=== PATIENT | male | born 1935 | race Caucasian/White ===

== ENCOUNTER 2017-11-27 15:52 | Emergency (ER) | payer MEDICARE, OTHER ==
[2017-11-27] MEDS: ALBUTEROL 0.5% (NEB) 2.5 MG/0.5 ML AMP INH (15:55)
[2017-11-27] MEDS: IPRATROPIUM (NEB) 0.5 MG/2.5 ML AMP INH (15:55)
[2017-11-27] MEDS: METHYLPREDNISOLONE 125 MG INJ IV (16:01)
[2017-11-27 16:05] LABS: ADD MAN DIFF? NO
[2017-11-27 16:12] LABS: WHITE BLOOD COUNT 8.9 10^3/ul (4.8-10.8)
[2017-11-27 16:12] LABS: BASOPHILS % 0.2 % (0.0-2.0); EOSINOPHILS # 0.3 10^3/ul (0.0-0.5); EOSINOPHILS % 2.8 % (0.0-7.0); HEMATOCRIT 41.4 % (42.0-52.0); HEMOGLOBIN 12.9 g/dl (14.0-18.0); LYMPHOCYTES # 1.9 10^3/ul (0.8-2.9); LYMPHOCYTES % 21.6 % (15.0-51.0); MEAN CORPUSCULAR HEMOGLOBIN 27.5 pg (29.0-33.0); MEAN CORPUSCULAR HGB CONC 31.2 g/dl (32.0-37.0); MEAN CORPUSCULAR VOLUME 88.3 fl (82.0-101.0); MEAN PLATELET VOLUME 9.7 fl (7.4-10.4); MONOCYTE # 0.8 10^3/ul (0.3-0.9); MONOCYTES % 8.9 % (0.0-11.0); NEUTROPHIL # 5.9 10^3/ul (1.6-7.5); NEUTROPHILS % 66.2 % (39.0-77.0); PLATELET COUNT 191 10^3/UL (140-415); RED BLOOD COUNT 4.69 10^6/ul (4.70-6.10); RED CELL DISTRIBUTION WIDTH 13.4 % (11.5-14.5)
[2017-11-27] MEDS: MAGNESIUM SULFATE 2 GM/50 ML 50 ML IVPB (16:19)
[2017-11-27 16:28] LABS: ANION GAP 17 (8-16); BLOOD UREA NITROGEN 14 mg/dl (7-20); CALCIUM 7.2 mg/dl (8.4-10.2); CARBON DIOXIDE 31 mmol/L (21-31); CHLORIDE 101 mmol/L (97-110); CREATININE 0.84 mg/dl (0.61-1.24); GLUCOSE 79 mg/dl (70-220); POTASSIUM 4.4 mmol/L (3.5-5.1); SODIUM 145 mmol/L (135-144)
[2017-11-27 16:31] LABS: PROTIME 12.2 Sec (11.9-14.9)
[2017-11-27 16:32] LABS: PARTIAL THROMBOPLASTIN TIME 29.3 Sec (25.0-35.0)
[2017-11-27 16:37] LABS: B-TYPE NATRIURETIC PEPTIDE 640 PG/ML (0-450)
[2017-11-27 16:48] LABS: TROPONIN-I < 0.012 ng/ml (0.00-0.12)
== END 2017-11-27 18:59 | disposition home or self-care (01) ==
LOC: E/R 15:52
DX: J44.1 Chronic obstructive pulmonary disease with (acute) exacerbation (principal); I10 Essential (primary) hypertension; I25.10 Atherosclerotic heart disease of native coronary artery without angina pectoris; J45.901 Unspecified asthma with (acute) exacerbation; Z79.82 Long term (current) use of aspirin; Z87.891 Personal history of nicotine dependence; Z98.61 Coronary angioplasty status
CPT/HCPCS: 36415; 71045; 80048; 83880; 84484; 85025; 85610; 85730; 93005; 94644; 96374; 96375; 99285-25

== ENCOUNTER 2018-05-02 08:22 | Inpatient (IN) | payer MEDICARE, OTHER ==
[2018-05-02 09:11] LABS: ADD MAN DIFF? NO
[2018-05-02 09:17] LABS: BASOPHILS % 0.2 % (0.0-2.0); EOSINOPHILS # 0.1 10^3/ul (0.0-0.5); EOSINOPHILS % 1.5 % (0.0-7.0); HEMOGLOBIN 13.9 g/dl (14.0-18.0); LYMPHOCYTES # 1.1 10^3/ul (0.8-2.9); LYMPHOCYTES % 13.9 % (15.0-51.0); MEAN CORPUSCULAR HGB CONC 30.9 g/dl (32.0-37.0); MEAN CORPUSCULAR VOLUME 90.7 fl (82.0-101.0); MEAN PLATELET VOLUME 9.1 fl (7.4-10.4); MONOCYTE # 0.9 10^3/ul (0.3-0.9); MONOCYTES % 10.8 % (0.0-11.0); NEUTROPHIL # 5.9 10^3/ul (1.6-7.5); NEUTROPHILS % 73.2 % (39.0-77.0); PLATELET COUNT 194 10^3/UL (140-415); RED BLOOD COUNT 4.96 10^6/ul (4.70-6.10)
[2018-05-02 09:17] LABS: WHITE BLOOD COUNT 8.1 10^3/ul (4.8-10.8)
[2018-05-02] MEDS: ALBUTEROL 0.083% (NEB) 2.5 MG/3 ML AMP HHN ×2 (09:23→10:19)
[2018-05-02 09:35] LABS: ALANINE AMINOTRANSFERASE 28 IU/L (13-69); ALBUMIN 3.4 g/dl (3.3-4.9); ALBUMIN/GLOBULIN RATIO 1.09; ALKALINE PHOSPHATASE 97 IU/L (42-121); ASPARTATE AMINO TRANSFERASE 21 IU/L (15-46); BILIRUBIN,INDIRECT 0.6 mg/dl (0-1.1); BILIRUBIN,TOTAL 0.6 mg/dl (0.2-1.3); BLOOD UREA NITROGEN 19 mg/dl (7-20); CALCIUM 8.9 mg/dl (8.4-10.2); CHLORIDE 94 mmol/L (97-110); CREATININE 0.96 mg/dl (0.61-1.24); GLUCOSE 94 mg/dl (70-220); INR 0.86; POTASSIUM 4.5 mmol/L (3.5-5.1); PROTIME 11.8 Sec (11.9-14.9); PT RATIO 0.9; SODIUM 141 mmol/L (135-144); TOTAL PROTEIN 6.5 g/dl (6.1-8.1)
[2018-05-02 09:35] LABS: LACTIC ACID 0.6 mmol/L (0.5-2.0)
[2018-05-02 09:36] LABS: PARTIAL THROMBOPLASTIN TIME 28.8 Sec (23.0-35.0)
[2018-05-02 09:47] LABS: B-TYPE NATRIURETIC PEPTIDE 447 PG/ML (0-450); TROPONIN-I < 0.012 ng/ml (0.000-0.120)
[2018-05-02 10:05] LABS: ANION GAP 10 (8-16); CARBON DIOXIDE 42 mmol/L (21-31)
[2018-05-02] MEDS: METHYLPREDNISOLONE 125 MG INJ IV ×2 (10:13→20:17)
[2018-05-02] MEDS: ACETAMINOPHEN 500 MG TAB PO (10:23)
[2018-05-02 13:14] LABS: LACTIC ACID 0.9 mmol/L (0.5-2.0)
[2018-05-02] MEDS ORDERED: ACETAMINOPHEN 500 MG TAB PO (13:30)
[2018-05-02] MEDS: VANCOMYCIN 2 GM in SOD CHLORIDE 0.9% 500 ML IVPB (17:09)
[2018-05-02] MEDS: EZETIMIBE 10 MG TAB PO (20:15)
[2018-05-02] MEDS: RANOLAZINE (SR) 500 MG TAB PO (20:17)
[2018-05-02] MEDS: ROSUVASTATIN CALCIUM 40 MG TABLET PO (20:24)
[2018-05-03] MEDS: ALBUTEROL/IPRATROPIUM (NEB) 3 ML AMP HHN ×4 (00:33→23:28)
[2018-05-03] MEDS: VANCOMYCIN 1 GM 250 ML IVPB ×2 (04:37→16:49)
[2018-05-03] MEDS: traMADol 50 MG TAB PO (08:08)
[2018-05-03] MEDS: AMLODIPINE 5 MG TAB PO (08:52)
[2018-05-03] MEDS: ASPIRIN 81 MG TAB PO (08:52)
[2018-05-03] MEDS: FUROSEMIDE 40 MG TAB PO (08:52)
[2018-05-03] MEDS: ISOSORBIDE MONONITRATE(SR)60 MG TAB PO (08:53)
[2018-05-03] MEDS: RANOLAZINE (SR) 500 MG TAB PO ×2 (08:53→20:59)
[2018-05-03] MEDS: FLUTICASONE/VILANTEROL 200-25 INH DEVICE INH (08:54)
[2018-05-03] MEDS ORDERED: VANCOMYCIN 1 GM (PMX) 250 ML IVPB (09:00)
[2018-05-03] MEDS: FUROSEMIDE 20 MG INJ IV (16:49)
[2018-05-03] MEDS: ROSUVASTATIN CALCIUM 40 MG TABLET PO (20:59)
[2018-05-03] MEDS: EZETIMIBE 10 MG TAB PO (20:59)
[2018-05-03] MEDS: METHYLPREDNISOLONE 125 MG INJ IV (21:01)
[2018-05-04 03:51] LABS: ADD MAN DIFF? NO
[2018-05-04 04:11] LABS: WHITE BLOOD COUNT 20.7 10^3/ul (4.8-10.8)
[2018-05-04 04:11] LABS: BASOPHILS % 0.1 % (0.0-2.0); HEMATOCRIT 42.2 % (42.0-52.0); HEMOGLOBIN 13.7 g/dl (14.0-18.0); LYMPHOCYTES % 4.9 % (15.0-51.0); MEAN CORPUSCULAR HEMOGLOBIN 28.5 pg (29.0-33.0); MEAN CORPUSCULAR HGB CONC 32.5 g/dl (32.0-37.0); MEAN CORPUSCULAR VOLUME 87.9 fl (82.0-101.0); MEAN PLATELET VOLUME 9.6 fl (7.4-10.4); MONOCYTE # 0.5 10^3/ul (0.3-0.9); MONOCYTES % 2.3 % (0.0-11.0); NEUTROPHILS % 91.9 % (39.0-77.0); PLATELET COUNT 215 10^3/UL (140-415)
[2018-05-04 04:15] LABS: ALANINE AMINOTRANSFERASE 22 IU/L (13-69); ALBUMIN 3.1 g/dl (3.3-4.9); ALKALINE PHOSPHATASE 81 IU/L (42-121); ANION GAP 10 (8-16); ASPARTATE AMINO TRANSFERASE 19 IU/L (15-46); BILIRUBIN,INDIRECT 0.3 mg/dl (0-1.1); BILIRUBIN,TOTAL 0.3 mg/dl (0.2-1.3); BLOOD UREA NITROGEN 28 mg/dl (7-20); CARBON DIOXIDE 39 mmol/L (21-31); CHLORIDE 95 mmol/L (97-110); CREATININE 0.93 mg/dl (0.61-1.24); GLUCOSE 152 mg/dl (70-220); POTASSIUM 4.3 mmol/L (3.5-5.1); SODIUM 140 mmol/L (135-144); TOTAL PROTEIN 6.2 g/dl (6.1-8.1)
[2018-05-04 04:49] LABS: VANCOMYCIN,TROUGH 12.2 ug/ml (10.0-20.0)
[2018-05-04] MEDS: VANCOMYCIN 1 GM 250 ML IVPB (05:00)
[2018-05-04] MEDS: ALBUTEROL/IPRATROPIUM (NEB) 3 ML AMP HHN ×2 (08:00→15:21)
[2018-05-04] MEDS: RANOLAZINE (SR) 500 MG TAB PO (08:22)
[2018-05-04] MEDS: ASPIRIN 81 MG TAB PO (08:22)
[2018-05-04] MEDS: AMLODIPINE 5 MG TAB PO (08:23)
[2018-05-04] MEDS: ISOSORBIDE MONONITRATE(SR)60 MG TAB PO (08:23)
[2018-05-04] MEDS: FLUTICASONE/VILANTEROL 200-25 INH DEVICE INH (08:24)
[2018-05-04] MEDS: FUROSEMIDE 40 MG TAB PO (08:24)
[2018-05-04] MEDS: traMADol 50 MG TAB PO (08:27)
== END 2018-05-04 16:47 | disposition home or self-care (01) | DRG 291 ==
LOC: E/R 08:22 → TEL 05-03 20:15
DX: I11.0 Hypertensive heart disease with heart failure (principal); J96.21 Acute and chronic respiratory failure with hypoxia; J96.22 Acute and chronic respiratory failure with hypercapnia; L03.211 Cellulitis of face; J44.1 Chronic obstructive pulmonary disease with (acute) exacerbation; I50.33 Acute on chronic diastolic (congestive) heart failure; G30.9 Alzheimer's disease, unspecified; F02.80 Dementia in other diseases classified elsewhere, unspecified severity, without behavioral disturbance, psychotic disturbance, mood disturbance, and anxiety; F32.9 Major depressive disorder, single episode, unspecified; K21.9 Gastro-esophageal reflux disease without esophagitis; I25.119 Atherosclerotic heart disease of native coronary artery with unspecified angina pectoris; Z91.14 Patient's other noncompliance with medication regimen; Z98.62 Peripheral vascular angioplasty status; I25.5 Ischemic cardiomyopathy; I25.2 Old myocardial infarction; E11.51 Type 2 diabetes mellitus with diabetic peripheral angiopathy without gangrene
CPT/HCPCS: 36415; 71045; 71046; 80053; 80202; 83605; 83880; 84484; 85025; 85610; 85730; 87040; 93005; 93306; 94640; 94664; 96374; 99285-25

== ENCOUNTER 2018-09-29 13:31 | Inpatient (IN) | payer MEDICARE, OTHER ==
[2018-09-29] MEDS: ALBUTEROL 0.5% (NEB) 2.5 MG/0.5 ML AMP INH (14:00)
[2018-09-29] MEDS: IPRATROPIUM (NEB) 0.5 MG/2.5 ML AMP INH (14:00)
[2018-09-29] MEDS: AZITHROMYCIN 500MG/NS (PMX) 250 ML IV (14:03)
[2018-09-29] MEDS: DEXAMETHASONE 10 MG/ML 1 ML INJ IV (14:03)
[2018-09-29 14:08] LABS: ADD MAN DIFF? NO
[2018-09-29 14:09] LABS: AADO2 Venous 71.8 mmHg; MODE NASAL CANNULA; MetHgb Venous 0.1 %; Sample Type Blood venous; Site OTHER; Venous COHb 1.1 %; Venous Fraction OxyHgb 55.7 %; Venous Oxygen Sat 56.4 mmHG (55.0-75.0); Venous Total Hemglobin 14.2 g/dl
[2018-09-29 14:15] LABS: BASOPHILS % 0.3 % (0.0-2.0); EOSINOPHILS # 0.1 10^3/ul (0.0-0.5); EOSINOPHILS % 1.3 % (0.0-7.0); HEMATOCRIT 42.6 % (42.0-52.0); HEMOGLOBIN 13.3 g/dl (14.0-18.0); LYMPHOCYTES # 1.4 10^3/ul (0.8-2.9); MEAN CORPUSCULAR HEMOGLOBIN 28.5 pg (29.0-33.0); MEAN CORPUSCULAR HGB CONC 31.2 g/dl (32.0-37.0); MEAN CORPUSCULAR VOLUME 91.4 fl (82.0-101.0); MEAN PLATELET VOLUME 9.8 fl (7.4-10.4); MONOCYTE # 0.7 10^3/ul (0.3-0.9); MONOCYTES % 9.2 % (0.0-11.0); NEUTROPHIL # 5.5 10^3/ul (1.6-7.5); NEUTROPHILS % 70.6 % (39.0-77.0); PLATELET COUNT 172 10^3/UL (140-415); RED BLOOD COUNT 4.66 10^6/ul (4.70-6.10); RED CELL DISTRIBUTION WIDTH 13.5 % (11.5-14.5)
[2018-09-29 14:15] LABS: WHITE BLOOD COUNT 7.8 10^3/ul (4.8-10.8)
[2018-09-29 14:34] LABS: ALANINE AMINOTRANSFERASE 19 IU/L (13-69); ALBUMIN 4.1 g/dl (3.3-4.9); ALBUMIN/GLOBULIN RATIO 1.36; ALKALINE PHOSPHATASE 72 IU/L (42-121); ASPARTATE AMINO TRANSFERASE 21 IU/L (15-46); BILIRUBIN,INDIRECT 0.4 mg/dl (0-1.1); BILIRUBIN,TOTAL 0.4 mg/dl (0.2-1.3); BLOOD UREA NITROGEN 16 mg/dl (7-20); CALCIUM 9.2 mg/dl (8.4-10.2); CHLORIDE 95 mmol/L (97-110); CREATININE 0.83 mg/dl (0.61-1.24); GLUCOSE 86 mg/dl (70-220); POTASSIUM 4.5 mmol/L (3.5-5.1); SODIUM 140 mmol/L (135-144); TOTAL PROTEIN 7.1 g/dl (6.1-8.1)
[2018-09-29 14:40] LABS: ANION GAP 5 (5-13)
[2018-09-29 14:45] LABS: TROPONIN-I < 0.012 ng/ml (0.000-0.120)
[2018-09-29 14:52] LABS: B-TYPE NATRIURETIC PEPTIDE 955 PG/ML (0-450); CARBON DIOXIDE 40 mmol/L (21-31)
[2018-09-29 15:16] LABS: INR 0.92; PROTIME 12.5 Sec (11.9-14.9)
[2018-09-29 15:18] LABS: PARTIAL THROMBOPLASTIN TIME 28.3 Sec (23.0-35.0)
[2018-09-29] MEDS ORDERED: HYDROCORTISONE 250 MG INJ IV ×2 (18:30)
[2018-09-29] MEDS ORDERED: traMADol 50 MG TAB PO (18:30)
[2018-09-29] MEDS ORDERED: NITROGLYCERIN (SL) 0.4 MG TAB SL (18:30)
[2018-09-29] MEDS: ISOSORBIDE MONONITRATE(SR)60 MG TAB PO (19:05)
[2018-09-29] MEDS: FUROSEMIDE 40 MG TAB PO (19:06)
[2018-09-29] MEDS: ASPIRIN 81 MG TAB PO (19:06)
[2018-09-29] MEDS: AMLODIPINE 5 MG TAB PO (19:06)
[2018-09-29 19:39] LABS: CREATINE KINASE 30 IU/L (23-200); IRON 63 ug/dl (35-150)
[2018-09-29 19:39] LABS: MAGNESIUM 1.9 mg/dl (1.7-2.5)
[2018-09-29 19:49] LABS: CK INDEX 3.2; CK-MB 0.95 ng/ml (0.0-2.4); TROPONIN-I 0.015 ng/ml (0.000-0.120)
[2018-09-29 19:50] LABS: % IRON SATURATION 20 % SAT (22-52); TOTAL IRON BINDING CAPACITY 317 ug/dl (241-421)
[2018-09-29] MEDS: ALBUTEROL/IPRATROPIUM (NEB) 3 ML AMP INH (19:55)
[2018-09-29 20:08] LABS: THYROID STIMULATING HORMONE 0.512 MIU/L (0.465-4.680)
[2018-09-29] MEDS: RANOLAZINE (SR) 500 MG TAB PO (20:13)
[2018-09-29] MEDS: METHYLPRED NA SUCC IV (20:14)
[2018-09-29] MEDS: SOD CHLORIDE 0.9% IV (20:14)
[2018-09-29] MEDS: RANITIDINE 150 MG TAB PO (20:14)
[2018-09-29] MEDS: ENOXAPARIN 60 MG/0.6 ML SYG SC (20:26)
[2018-09-30] MEDS: ALBUTEROL/IPRATROPIUM (NEB) 3 ML AMP INH ×4 (01:21→19:40)
[2018-09-30 03:12] LABS: ADD UMIC NO; UR ASCORBIC ACID 40 mg/dL (NEGATIVE); UR BILIRUBIN (Dip) NEGATIVE (NEGATIVE); UR BLOOD (Dip) NEGATIVE (NEGATIVE); UR CLARITY CLEAR (CLEAR); UR COLOR AMBER (YELLOW); UR GLUCOSE (Dip) NEGATIVE (NEGATIVE); UR KETONES (Dip) NEGATIVE (NEGATIVE); UR LEUKOCYTE ESTERASE (Dip) NEGATIVE Leu/ul (NEGATIVE); UR NITRITE (Dip) NEGATIVE (NEGATIVE); UR TOTAL PROTEIN (Dip) NEGATIVE (NEGATIVE); UR UROBILINOGEN (Dip) 1+ mg/dL (NEGATIVE)
[2018-09-30 05:27] LABS: ADD MAN DIFF? NO
[2018-09-30 05:28] LABS: HEMATOCRIT 38.1 % (42.0-52.0); LYMPHOCYTES # 0.8 10^3/ul (0.8-2.9); LYMPHOCYTES % 10.5 % (15.0-51.0); MEAN CORPUSCULAR HEMOGLOBIN 28.4 pg (29.0-33.0); MEAN CORPUSCULAR HGB CONC 31.5 g/dl (32.0-37.0); MEAN CORPUSCULAR VOLUME 90.1 fl (82.0-101.0); MEAN PLATELET VOLUME 9.8 fl (7.4-10.4); MONOCYTE # 0.1 10^3/ul (0.3-0.9); MONOCYTES % 0.9 % (0.0-11.0); NEUTROPHIL # 6.9 10^3/ul (1.6-7.5); NEUTROPHILS % 88.1 % (39.0-77.0); PLATELET COUNT 154 10^3/UL (140-415); RED BLOOD COUNT 4.23 10^6/ul (4.70-6.10); RED CELL DISTRIBUTION WIDTH 13.2 % (11.5-14.5)
[2018-09-30 05:28] LABS: WHITE BLOOD COUNT 7.9 10^3/ul (4.8-10.8)
[2018-09-30] MEDS: METHYLPREDNISOLONE 125 MG INJ IV (05:45)
[2018-09-30 05:57] LABS: ALANINE AMINOTRANSFERASE 18 IU/L (13-69); ALBUMIN 3.4 g/dl (3.3-4.9); ALKALINE PHOSPHATASE 63 IU/L (42-121); ANION GAP 5 (5-13); ASPARTATE AMINO TRANSFERASE 16 IU/L (15-46); BILIRUBIN,INDIRECT 0.2 mg/dl (0-1.1); BILIRUBIN,TOTAL 0.2 mg/dl (0.2-1.3); BLOOD UREA NITROGEN 24 mg/dl (7-20); CALCIUM 8.9 mg/dl (8.4-10.2); CARBON DIOXIDE 37 mmol/L (21-31); CHLORIDE 100 mmol/L (97-110); CREATININE 0.87 mg/dl (0.61-1.24); GLUCOSE 169 mg/dl (70-220); POTASSIUM 4.5 mmol/L (3.5-5.1); SODIUM 142 mmol/L (135-144)
[2018-09-30] MEDS: RANOLAZINE (SR) 500 MG TAB PO ×2 (08:38→20:01)
[2018-09-30] MEDS: ASPIRIN 81 MG TAB PO (08:38)
[2018-09-30] MEDS: ISOSORBIDE MONONITRATE(SR)60 MG TAB PO (08:38)
[2018-09-30] MEDS: AMLODIPINE 5 MG TAB PO (08:39)
[2018-09-30] MEDS: FUROSEMIDE 40 MG TAB PO (08:39)
[2018-09-30] MEDS: ENOXAPARIN 60 MG/0.6 ML SYG SC (09:09)
[2018-09-30] MEDS: AZITHROMYCIN 500MG/NS (PMX) 250 ML IVPB (14:45)
[2018-09-30] MEDS: RANITIDINE 150 MG TAB PO (20:01)
[2018-10-01] MEDS: ALBUTEROL/IPRATROPIUM (NEB) 3 ML AMP INH ×4 (01:27→20:12)
[2018-10-01 05:09] LABS: ADD MAN DIFF? NO
[2018-10-01 05:12] LABS: WHITE BLOOD COUNT 18.9 10^3/ul (4.8-10.8)
[2018-10-01 05:12] LABS: BASOPHILS % 0.1 % (0.0-2.0); HEMATOCRIT 38.6 % (42.0-52.0); HEMOGLOBIN 12.5 g/dl (14.0-18.0); LYMPHOCYTES # 0.9 10^3/ul (0.8-2.9); LYMPHOCYTES % 4.6 % (15.0-51.0); MEAN CORPUSCULAR HGB CONC 32.4 g/dl (32.0-37.0); MEAN CORPUSCULAR VOLUME 89.6 fl (82.0-101.0); MEAN PLATELET VOLUME 10.2 fl (7.4-10.4); MONOCYTE # 0.5 10^3/ul (0.3-0.9); MONOCYTES % 2.5 % (0.0-11.0); NEUTROPHIL # 17.5 10^3/ul (1.6-7.5); NEUTROPHILS % 92.1 % (39.0-77.0); PLATELET COUNT 158 10^3/UL (140-415); RED BLOOD COUNT 4.31 10^6/ul (4.70-6.10); RED CELL DISTRIBUTION WIDTH 13.5 % (11.5-14.5)
[2018-10-01] MEDS: METHYLPREDNISOLONE 125 MG INJ IV (05:27)
[2018-10-01 05:46] LABS: ALANINE AMINOTRANSFERASE 21 IU/L (13-69); ALBUMIN 3.5 g/dl (3.3-4.9); ALBUMIN/GLOBULIN RATIO 1.29; ALKALINE PHOSPHATASE 63 IU/L (42-121); ANION GAP 6 (5-13); ASPARTATE AMINO TRANSFERASE 16 IU/L (15-46); BILIRUBIN,INDIRECT 0.1 mg/dl (0-1.1); BILIRUBIN,TOTAL 0.1 mg/dl (0.2-1.3); BLOOD UREA NITROGEN 26 mg/dl (7-20); CALCIUM 8.7 mg/dl (8.4-10.2); CARBON DIOXIDE 36 mmol/L (21-31); CHLORIDE 97 mmol/L (97-110); CREATININE 0.78 mg/dl (0.61-1.24); GLUCOSE 150 mg/dl (70-220); POTASSIUM 4.3 mmol/L (3.5-5.1); SODIUM 139 mmol/L (135-144); TOTAL PROTEIN 6.2 g/dl (6.1-8.1)
[2018-10-01] MEDS: ASPIRIN 81 MG TAB PO (08:47)
[2018-10-01] MEDS: RANOLAZINE (SR) 500 MG TAB PO ×2 (08:47→22:02)
[2018-10-01] MEDS: ISOSORBIDE MONONITRATE(SR)60 MG TAB PO (08:48)
[2018-10-01] MEDS: FUROSEMIDE 40 MG TAB PO (08:49)
[2018-10-01] MEDS: AMLODIPINE 5 MG TAB PO (08:50)
[2018-10-01] MEDS: ENOXAPARIN 60 MG/0.6 ML SYG SC (09:00)
[2018-10-01] MEDS: RANITIDINE 150 MG TAB PO (22:02)
[2018-10-02] MEDS: ALBUTEROL/IPRATROPIUM (NEB) 3 ML AMP INH ×4 (01:34→20:20)
[2018-10-02] MEDS: ASPIRIN 81 MG TAB PO (08:27)
[2018-10-02] MEDS: METHYLPREDNISOLONE 40 MG INJ IV (08:27)
[2018-10-02] MEDS: RANOLAZINE (SR) 500 MG TAB PO ×2 (08:27→21:20)
[2018-10-02] MEDS: FUROSEMIDE 40 MG TAB PO (08:28)
[2018-10-02] MEDS: AMLODIPINE 5 MG TAB PO (08:28)
[2018-10-02] MEDS: ISOSORBIDE MONONITRATE(SR)60 MG TAB PO (09:26)
[2018-10-02] MEDS: ENOXAPARIN 60 MG/0.6 ML SYG SC (09:40)
[2018-10-02] MEDS: RANITIDINE 150 MG TAB PO (21:20)
[2018-10-03] MEDS: ALBUTEROL/IPRATROPIUM (NEB) 3 ML AMP INH ×3 (01:05→14:04)
[2018-10-03] MEDS: RANOLAZINE (SR) 500 MG TAB PO (08:14)
[2018-10-03] MEDS: ISOSORBIDE MONONITRATE(SR)60 MG TAB PO (08:14)
[2018-10-03] MEDS: FUROSEMIDE 40 MG TAB PO (08:15)
[2018-10-03] MEDS: ASPIRIN 81 MG TAB PO (08:15)
[2018-10-03] MEDS: AMLODIPINE 5 MG TAB PO (08:15)
[2018-10-03] MEDS: ENOXAPARIN 60 MG/0.6 ML SYG SC (08:17)
== END 2018-10-03 16:50 | disposition left against medical advice (07) | DRG 191 ==
LOC: E/R 13:31 → 2NE 10-01 19:46 → 6WM 15:33
PROC: 4A033R1 Measurement of Arterial Saturation, Peripheral, Percutaneous Approach (ICD-10-PCS; principal; 2018-09-29)
DX: J44.1 Chronic obstructive pulmonary disease with (acute) exacerbation (principal); L03.211 Cellulitis of face; R06.03 Acute respiratory distress; I50.9 Heart failure, unspecified; G30.9 Alzheimer's disease, unspecified; F02.80 Dementia in other diseases classified elsewhere, unspecified severity, without behavioral disturbance, psychotic disturbance, mood disturbance, and anxiety; D63.8 Anemia in other chronic diseases classified elsewhere; K21.9 Gastro-esophageal reflux disease without esophagitis; I51.7 Cardiomegaly; I25.10 Atherosclerotic heart disease of native coronary artery without angina pectoris; R09.02 Hypoxemia; F32.9 Major depressive disorder, single episode, unspecified; I25.2 Old myocardial infarction; Z79.82 Long term (current) use of aspirin; Z91.14 Patient's other noncompliance with medication regimen; Z91.19 Patient's noncompliance with other medical treatment and regimen; Z95.5 Presence of coronary angioplasty implant and graft; Z87.891 Personal history of nicotine dependence
CPT/HCPCS: 36415; 71045; 71046; 80053; 81003; 82550; 82553; 82803; 83540; 83605; 83735; 83880; 84443; 84484; 85025; 85610; 85730; 87040; 87081; 93005; 94640; 94644; 94660; 94664; 96365; 96375; 97162; 99291-25; G0378

== ENCOUNTER 2018-10-15 23:01 | Inpatient (IN) | payer MEDICARE, OTHER ==
[2018-10-15 23:26] LABS: ADD MAN DIFF? NO
[2018-10-15 23:27] LABS: BASOPHILS % 0.2 % (0.0-2.0); EOSINOPHILS % 0.5 % (0.0-7.0); HEMATOCRIT 40.9 % (42.0-52.0); HEMOGLOBIN 12.6 g/dl (14.0-18.0); LYMPHOCYTES # 1.4 10^3/ul (0.8-2.9); LYMPHOCYTES % 12.8 % (15.0-51.0); MEAN CORPUSCULAR HEMOGLOBIN 28.7 pg (29.0-33.0); MEAN CORPUSCULAR HGB CONC 30.8 g/dl (32.0-37.0); MEAN CORPUSCULAR VOLUME 93.2 fl (82.0-101.0); MEAN PLATELET VOLUME 10.1 fl (7.4-10.4); MONOCYTES % 7.6 % (0.0-11.0); NEUTROPHIL # 8.4 10^3/ul (1.6-7.5); NEUTROPHILS % 77.7 % (39.0-77.0); PLATELET COUNT 133 10^3/UL (140-415); RED BLOOD COUNT 4.39 10^6/ul (4.70-6.10); RED CELL DISTRIBUTION WIDTH 13.8 % (11.5-14.5)
[2018-10-15 23:27] LABS: WHITE BLOOD COUNT 10.9 10^3/ul (4.8-10.8)
[2018-10-15 23:28] LABS: EOSINOPHILS # 0.1 10^3/ul (0.0-0.5); MONOCYTE # 0.8 10^3/ul (0.3-0.9); POSITIVE DIFF @See below
[2018-10-15] MEDS: ALBUTEROL 0.5% (NEB) 2.5 MG/0.5 ML AMP INH (23:29)
[2018-10-15] MEDS: IPRATROPIUM (NEB) 0.5 MG/2.5 ML AMP INH (23:29)
[2018-10-15] MEDS: METHYLPREDNISOLONE 125 MG INJ IV (23:41)
[2018-10-15 23:43] LABS: AADO2 Arterial 87.3 mmHg (7.0-24.0); Arterial Base Excess 8.5 mmol/L (-3.0-3); Arterial Blood Gas Oxygen Sat 98.7 mmHG (95.0-100.0); Arterial Fraction of Oxyhgb 97.5 % (93.0-99.0); Arterial HCO3 36.2 mmol/L (22.0-26.0); Arterial MetHb 0.2 % (0.0-1.5); Arterial pCO2 64.8 mmhg (35-45); INR 0.85; MODE MASK - SIMPLE; PROTIME 11.7 Sec (11.9-14.9); PT RATIO 0.9; Site Right Brachial
[2018-10-15 23:44] LABS: PARTIAL THROMBOPLASTIN TIME 25.9 Sec (23.0-35.0)
[2018-10-15 23:52] LABS: ALANINE AMINOTRANSFERASE 25 IU/L (13-69); ALBUMIN 3.6 g/dl (3.3-4.9); ALBUMIN/GLOBULIN RATIO 1.28; ALKALINE PHOSPHATASE 57 IU/L (42-121); ANION GAP 7 (5-13); ASPARTATE AMINO TRANSFERASE 27 IU/L (15-46); BILIRUBIN,INDIRECT 0.7 mg/dl (0-1.1); BILIRUBIN,TOTAL 0.7 mg/dl (0.2-1.3); BLOOD UREA NITROGEN 20 mg/dl (7-20); CALCIUM 8.6 mg/dl (8.4-10.2); CARBON DIOXIDE 38 mmol/L (21-31); CHLORIDE 93 mmol/L (97-110); CREATININE 1.03 mg/dl (0.61-1.24); GLUCOSE 88 mg/dl (70-220); POTASSIUM 5.2 mmol/L (3.5-5.1); SODIUM 138 mmol/L (135-144); TOTAL PROTEIN 6.4 g/dl (6.1-8.1)
[2018-10-16 00:04] LABS: B-TYPE NATRIURETIC PEPTIDE 960 PG/ML (0-450); TROPONIN-I 0.021 ng/ml (0.000-0.120)
[2018-10-16 04:01] LABS: LACTIC ACID 1.1 mmol/L (0.5-2.0)
[2018-10-16] MEDS ORDERED: FUROSEMIDE 40 MG TAB PO (09:30)
[2018-10-16] MEDS ORDERED: traMADol 50 MG TAB PO (09:30)
[2018-10-16] MEDS ORDERED: NITROGLYCERIN (SL) 0.4 MG TAB SL (09:30)
[2018-10-16] MEDS: FUROSEMIDE 40 MG INJ IV ×2 (10:32→17:38)
[2018-10-16] MEDS: AMLODIPINE 5 MG TAB PO (10:33)
[2018-10-16] MEDS: RANOLAZINE (SR) 500 MG TAB PO ×2 (10:33→21:35)
[2018-10-16] MEDS: ASPIRIN 81 MG TAB PO (10:33)
[2018-10-16] MEDS: TIOTROPIUM 18 MCG CAPSULE INHA DEV INH (11:15)
[2018-10-16] MEDS: HYDROCORTISONE 250 MG INJ IV (13:15)
[2018-10-16] MEDS: RANITIDINE 150 MG TAB PO (21:35)
[2018-10-17] MEDS: TIOTROPIUM 18 MCG CAPSULE INHA DEV INH (08:33)
[2018-10-17] MEDS: ASPIRIN 81 MG TAB PO (08:34)
[2018-10-17] MEDS: AMLODIPINE 5 MG TAB PO (08:34)
[2018-10-17] MEDS: RANOLAZINE (SR) 500 MG TAB PO ×2 (08:34→21:34)
[2018-10-17] MEDS: ISOSORBIDE MONONITRATE(SR)60 MG TAB PO (08:35)
[2018-10-17] MEDS: METHYLPREDNISOLONE 125 MG INJ IV (08:36)
[2018-10-17] MEDS: FUROSEMIDE 40 MG INJ IV ×2 (09:19→11:28)
[2018-10-17] MEDS ORDERED: FUROSEMIDE 40 MG TAB PO (09:30)
[2018-10-17] MEDS ORDERED: METHYLPREDNISOLONE 125 MG INJ IM (09:30)
[2018-10-17] MEDS: RANITIDINE 150 MG TAB PO (21:34)
[2018-10-18] MEDS: RANOLAZINE (SR) 500 MG TAB PO (08:26)
[2018-10-18] MEDS: AMLODIPINE 5 MG TAB PO (08:26)
[2018-10-18] MEDS: ISOSORBIDE MONONITRATE(SR)60 MG TAB PO (08:26)
[2018-10-18] MEDS: FUROSEMIDE 40 MG TAB PO (08:27)
[2018-10-18] MEDS: ASPIRIN 81 MG TAB PO (08:27)
[2018-10-18] MEDS: TIOTROPIUM 18 MCG CAPSULE INHA DEV INH (08:29)
[2018-10-18] MEDS: METHYLPREDNISOLONE 125 MG INJ IV (08:41)
[2018-10-18 11:35] LABS: ALANINE AMINOTRANSFERASE 27 IU/L (13-69); ALBUMIN 3.3 g/dl (3.3-4.9); ALBUMIN/GLOBULIN RATIO 1.43; ALKALINE PHOSPHATASE 62 IU/L (42-121); ASPARTATE AMINO TRANSFERASE 13 IU/L (15-46); BILIRUBIN,INDIRECT 0.4 mg/dl (0-1.1); BILIRUBIN,TOTAL 0.4 mg/dl (0.2-1.3); BLOOD UREA NITROGEN 41 mg/dl (7-20); CALCIUM 8.5 mg/dl (8.4-10.2); CHLORIDE 95 mmol/L (97-110); CREATININE 0.78 mg/dl (0.61-1.24); GLUCOSE 151 mg/dl (70-220); POTASSIUM 4.7 mmol/L (3.5-5.1); SODIUM 141 mmol/L (135-144); TOTAL PROTEIN 5.6 g/dl (6.1-8.1)
[2018-10-18 11:42] LABS: ANION GAP 6 (5-13)
[2018-10-18 11:43] LABS: CARBON DIOXIDE 40 mmol/L (21-31)
[2018-10-19] MEDS ORDERED: METHYLPREDNISOLONE 40 MG INJ IM (09:30)
== END 2018-10-18 14:34 | disposition home or self-care (01) | DRG 291 ==
LOC: E/R 23:01 → 6WM 10-16 00:51
DX: I11.0 Hypertensive heart disease with heart failure (principal); J96.21 Acute and chronic respiratory failure with hypoxia; J96.22 Acute and chronic respiratory failure with hypercapnia; J45.902 Unspecified asthma with status asthmaticus; J44.1 Chronic obstructive pulmonary disease with (acute) exacerbation; I50.33 Acute on chronic diastolic (congestive) heart failure; Z99.81 Dependence on supplemental oxygen; I25.5 Ischemic cardiomyopathy; I25.119 Atherosclerotic heart disease of native coronary artery with unspecified angina pectoris; G30.9 Alzheimer's disease, unspecified; F02.80 Dementia in other diseases classified elsewhere, unspecified severity, without behavioral disturbance, psychotic disturbance, mood disturbance, and anxiety; F32.9 Major depressive disorder, single episode, unspecified; K21.9 Gastro-esophageal reflux disease without esophagitis; I25.2 Old myocardial infarction; Z91.14 Patient's other noncompliance with medication regimen; Z79.82 Long term (current) use of aspirin; Z87.891 Personal history of nicotine dependence
CPT/HCPCS: 36415; 36600; 71045; 80053; 82803; 83605; 83880; 84484; 85025; 85610; 85730; 87081; 93005; 93306; 94644; 96374; 99285-25; G0378

== ENCOUNTER 2019-02-13 18:12 | Inpatient (IN) | payer MEDICARE, OTHER ==
[2019-02-13 19:57] LABS: ADD MAN DIFF? NO
[2019-02-13 20:00] LABS: WHITE BLOOD COUNT 8.8 10^3/ul (4.8-10.8)
[2019-02-13 20:00] LABS: BASOPHILS % 0.3 % (0.0-2.0); EOSINOPHILS # 0.1 10^3/ul (0.0-0.5); EOSINOPHILS % 1.6 % (0.0-7.0); HEMATOCRIT 43.1 % (42.0-52.0); HEMOGLOBIN 13.6 g/dl (14.0-18.0); LYMPHOCYTES # 1.6 10^3/ul (0.8-2.9); LYMPHOCYTES % 18.6 % (15.0-51.0); MEAN CORPUSCULAR HEMOGLOBIN 28.6 pg (29.0-33.0); MEAN CORPUSCULAR HGB CONC 31.6 g/dl (32.0-37.0); MEAN CORPUSCULAR VOLUME 90.7 fl (82.0-101.0); MEAN PLATELET VOLUME 9.7 fl (7.4-10.4); MONOCYTE # 0.8 10^3/ul (0.3-0.9); MONOCYTES % 8.7 % (0.0-11.0); NEUTROPHIL # 6.2 10^3/ul (1.6-7.5); NEUTROPHILS % 70.2 % (39.0-77.0); PLATELET COUNT 176 10^3/UL (140-415); RED BLOOD COUNT 4.75 10^6/ul (4.70-6.10); RED CELL DISTRIBUTION WIDTH 12.9 % (11.5-14.5)
[2019-02-13] MEDS: ALBUTEROL 0.5% (NEB) 2.5 MG/0.5 ML AMP INH (20:00)
[2019-02-13] MEDS: IPRATROPIUM (NEB) 0.5 MG/2.5 ML AMP INH (20:00)
[2019-02-13 20:05] LABS: ADD UMIC NO; UR ASCORBIC ACID 40 mg/dL (NEGATIVE); UR BILIRUBIN (Dip) NEGATIVE (NEGATIVE); UR BLOOD (Dip) NEGATIVE (NEGATIVE); UR CLARITY CLEAR (CLEAR); UR COLOR YELLOW (YELLOW); UR GLUCOSE (Dip) NEGATIVE (NEGATIVE); UR KETONES (Dip) TRACE mg/dL (NEGATIVE); UR LEUKOCYTE ESTERASE (Dip) NEGATIVE Leu/ul (NEGATIVE); UR NITRITE (Dip) NEGATIVE (NEGATIVE); UR SPECIFIC GRAVITY (Dip) 1.027 (1.003-1.030); UR TOTAL PROTEIN (Dip) NEGATIVE (NEGATIVE); UR UROBILINOGEN (Dip) 2+ mg/dL (NEGATIVE)
[2019-02-13] MEDS: METHYLPREDNISOLONE 125 MG INJ IV (20:09)
[2019-02-13 20:17] LABS: ALANINE AMINOTRANSFERASE 18 IU/L (13-69); ALBUMIN/GLOBULIN RATIO 1.25; ALKALINE PHOSPHATASE 77 IU/L (42-121); ASPARTATE AMINO TRANSFERASE 20 IU/L (15-46); BILIRUBIN,INDIRECT 0.4 mg/dl (0-1.1); BILIRUBIN,TOTAL 0.4 mg/dl (0.2-1.3); BLOOD UREA NITROGEN 25 mg/dl (7-20); CHLORIDE 100 mmol/L (97-110); CREATINE KINASE 39 IU/L (23-200); CREATININE 1.04 mg/dl (0.61-1.24); GLUCOSE 97 mg/dl (70-220); POTASSIUM 4.6 mmol/L (3.5-5.1); SODIUM 145 mmol/L (135-144); TOTAL PROTEIN 7.2 g/dl (6.1-8.1)
[2019-02-13 20:19] LABS: INR 0.89; PROTIME 12.2 Sec (11.9-14.9)
[2019-02-13 20:20] LABS: PARTIAL THROMBOPLASTIN TIME 28.1 Sec (23.0-35.0)
[2019-02-13 20:23] LABS: AADO2 Arterial 30.6 mmHg (7.0-24.0); Allen Test ACCEPTAB; Arterial Base Excess 7.6 mmol/L (-3.0-3); Arterial Blood Gas Oxygen Sat 97.6 mmHG (95.0-100.0); Arterial COHb 0.4 % (0.0-3.0); Arterial Fraction of Oxyhgb 96.8 % (93.0-99.0); Arterial HCO3 35.1 mmol/L (22.0-26.0); Arterial MetHb 0.4 % (0.0-1.5); Arterial pCO2 61.6 mmhg (35-45); MODE NASAL CANNULA; Site Right Radial
[2019-02-13 20:28] LABS: ANION GAP 7 (5-13); CARBON DIOXIDE 38 mmol/L (21-31)
[2019-02-13 20:30] LABS: B-TYPE NATRIURETIC PEPTIDE 2110 PG/ML (0-450); CK INDEX 3.1; CK-MB 1.22 ng/ml (0.0-2.4); TROPONIN-I < 0.012 ng/ml (0.000-0.120)
[2019-02-13] MEDS: FUROSEMIDE 20 MG INJ IV (21:29)
[2019-02-13] MEDS ORDERED: ONDANSETRON 4 MG INJ IV (21:30)
[2019-02-13] MEDS ORDERED: ACETAMINOPHEN 325 MG TAB PO (21:30)
[2019-02-14] MEDS ORDERED: NITROGLYCERIN (SL) 0.4 MG TAB SL (00:30)
[2019-02-14] MEDS ORDERED: traMADol 50 MG TAB PO (00:30)
[2019-02-14] MEDS ORDERED: ACETAMINOPHEN 500 MG TAB PO (01:00)
[2019-02-14 01:20] LABS: IRON 92 ug/dl (35-150)
[2019-02-14] MEDS: SACUBITRIL/VALSARTAN (24mg-26mg) TABLET PO ×3 (01:25→22:30)
[2019-02-14] MEDS: TAMSULOSIN (SR) 0.4 MG CAP PO (01:25)
[2019-02-14] MEDS: RANITIDINE 150 MG TAB PO ×2 (01:25→22:30)
[2019-02-14] MEDS: METHYLPREDNISOLONE 125 MG INJ IV ×2 (01:26→08:48)
[2019-02-14] MEDS: BUMETANIDE 1 MG TAB PO ×3 (01:26→22:30)
[2019-02-14] MEDS: RANOLAZINE (SR) 500 MG TAB PO ×3 (01:26→22:30)
[2019-02-14 01:29] LABS: % IRON SATURATION 27 % SAT (22-52); TOTAL IRON BINDING CAPACITY 336 ug/dl (241-421)
[2019-02-14] MEDS: ALBUTEROL/IPRATROPIUM (NEB) 3 ML AMP NEB (02:33)
[2019-02-14] MEDS: FINASTERIDE 5 MG TAB PO (08:48)
[2019-02-14] MEDS: AMLODIPINE 5 MG TAB PO (08:49)
[2019-02-14] MEDS: ASPIRIN 81 MG TAB PO (08:49)
[2019-02-14] MEDS: FOLIC ACID 1 MG TAB PO (08:49)
[2019-02-14] MEDS: ISOSORBIDE MONONITRATE(SR)60 MG TAB PO (09:08)
[2019-02-15] MEDS ORDERED: AZITHROMYCIN 500MG/NS (PMX) 250 ML IVPB
[2019-02-15] MEDS: ASPIRIN 81 MG TAB PO (09:00)
[2019-02-15] MEDS: SACUBITRIL/VALSARTAN (24mg-26mg) TABLET PO ×2 (09:00→21:12)
[2019-02-15] MEDS: METHYLPREDNISOLONE 40 MG INJ IV (09:26)
[2019-02-15] MEDS: BUMETANIDE 1 MG TAB PO ×2 (09:27→21:12)
[2019-02-15] MEDS: RANOLAZINE (SR) 500 MG TAB PO ×2 (09:27→21:12)
[2019-02-15] MEDS: FOLIC ACID 1 MG TAB PO (09:28)
[2019-02-15] MEDS: AMLODIPINE 5 MG TAB PO (09:28)
[2019-02-15] MEDS: ISOSORBIDE MONONITRATE(SR)60 MG TAB PO (09:33)
[2019-02-15] MEDS: AZITHROMYCIN 500MG/NS (PMX) 250 ML IVPB (09:43)
[2019-02-15] MEDS: RANITIDINE 150 MG TAB PO (21:11)
[2019-02-16] MEDS: AZITHROMYCIN 500MG/NS (PMX) 250 ML IVPB (06:30)
[2019-02-16 07:32] LABS: ADD MAN DIFF? NO
[2019-02-16 07:37] LABS: BASOPHILS % 0.1 % (0.0-2.0); HEMATOCRIT 41.8 % (42.0-52.0); HEMOGLOBIN 13.5 g/dl (14.0-18.0); LYMPHOCYTES # 0.9 10^3/ul (0.8-2.9); LYMPHOCYTES % 4.9 % (15.0-51.0); MEAN CORPUSCULAR HEMOGLOBIN 29.1 pg (29.0-33.0); MEAN CORPUSCULAR HGB CONC 32.3 g/dl (32.0-37.0); MEAN CORPUSCULAR VOLUME 90.1 fl (82.0-101.0); MEAN PLATELET VOLUME 10.3 fl (7.4-10.4); MONOCYTE # 0.6 10^3/ul (0.3-0.9); NEUTROPHIL # 17.2 10^3/ul (1.6-7.5); NEUTROPHILS % 91.2 % (39.0-77.0); PLATELET COUNT 172 10^3/UL (140-415); RED BLOOD COUNT 4.64 10^6/ul (4.70-6.10)
[2019-02-16 07:37] LABS: WHITE BLOOD COUNT 18.9 10^3/ul (4.8-10.8)
[2019-02-16] MEDS ORDERED: ALBUTEROL 0.083% (NEB) 2.5 MG/3 ML AMP HHN (08:00)
[2019-02-16 08:01] LABS: ALANINE AMINOTRANSFERASE 19 IU/L (13-69); ALBUMIN 3.5 g/dl (3.3-4.9); ALBUMIN/GLOBULIN RATIO 1.29; ALKALINE PHOSPHATASE 67 IU/L (42-121); ANION GAP 7 (5-13); ASPARTATE AMINO TRANSFERASE 25 IU/L (15-46); BILIRUBIN,INDIRECT 0.4 mg/dl (0-1.1); BILIRUBIN,TOTAL 0.4 mg/dl (0.2-1.3); BLOOD UREA NITROGEN 38 mg/dl (7-20); CALCIUM 8.3 mg/dl (8.4-10.2); CARBON DIOXIDE 39 mmol/L (21-31); CHLORIDE 95 mmol/L (97-110); GLUCOSE 137 mg/dl (70-220); POTASSIUM 4.1 mmol/L (3.5-5.1); SODIUM 141 mmol/L (135-144); TOTAL PROTEIN 6.2 g/dl (6.1-8.1)
[2019-02-16] MEDS: ASPIRIN 81 MG TAB PO (08:10)
[2019-02-16] MEDS: ISOSORBIDE MONONITRATE(SR)60 MG TAB PO (08:11)
[2019-02-16] MEDS: AMLODIPINE 5 MG TAB PO (08:11)
[2019-02-16] MEDS: SACUBITRIL/VALSARTAN (24mg-26mg) TABLET PO ×2 (08:12→20:14)
[2019-02-16] MEDS: BUMETANIDE 1 MG TAB PO ×2 (08:12→20:14)
[2019-02-16] MEDS: RANOLAZINE (SR) 500 MG TAB PO ×2 (08:12→20:14)
[2019-02-16] MEDS: FOLIC ACID 1 MG TAB PO (08:12)
[2019-02-16] MEDS: ALBUTEROL 0.083% (NEB) 2.5 MG/3 ML AMP HHN ×2 (08:46→16:19)
[2019-02-16] MEDS: RANITIDINE 150 MG TAB PO (20:14)
[2019-02-17] MEDS: ALBUTEROL 0.083% (NEB) 2.5 MG/3 ML AMP HHN ×2 (00:28→13:18)
[2019-02-17] MEDS: METHYLPREDNISOLONE 40 MG INJ IV (06:29)
[2019-02-17] MEDS: AZITHROMYCIN 500MG/NS (PMX) 250 ML IVPB (06:30)
[2019-02-17] MEDS: ASPIRIN 81 MG TAB PO (09:00)
[2019-02-17] MEDS: AMLODIPINE 5 MG TAB PO (09:21)
[2019-02-17] MEDS: ISOSORBIDE MONONITRATE(SR)60 MG TAB PO (09:21)
[2019-02-17] MEDS: BUMETANIDE 1 MG TAB PO (09:21)
[2019-02-17] MEDS: RANOLAZINE (SR) 500 MG TAB PO (09:21)
[2019-02-17] MEDS: SACUBITRIL/VALSARTAN (24mg-26mg) TABLET PO (09:21)
[2019-02-17] MEDS: FOLIC ACID 1 MG TAB PO (09:21)
== END 2019-02-17 14:39 | disposition home health service (06) | DRG 292 ==
LOC: E/R 18:12 → TEL 21:23
PROC: 4A033R1 Measurement of Arterial Saturation, Peripheral, Percutaneous Approach (ICD-10-PCS; principal; 2019-02-13)
DX: I11.0 Hypertensive heart disease with heart failure (principal); J44.1 Chronic obstructive pulmonary disease with (acute) exacerbation; L03.211 Cellulitis of face; I50.9 Heart failure, unspecified; G30.9 Alzheimer's disease, unspecified; F02.80 Dementia in other diseases classified elsewhere, unspecified severity, without behavioral disturbance, psychotic disturbance, mood disturbance, and anxiety; I25.10 Atherosclerotic heart disease of native coronary artery without angina pectoris; F32.9 Major depressive disorder, single episode, unspecified; I51.7 Cardiomegaly; K21.9 Gastro-esophageal reflux disease without esophagitis; I25.2 Old myocardial infarction; Z95.5 Presence of coronary angioplasty implant and graft; Z87.891 Personal history of nicotine dependence; Z99.81 Dependence on supplemental oxygen; Z79.82 Long term (current) use of aspirin; Z91.14 Patient's other noncompliance with medication regimen
CPT/HCPCS: 36415; 36600; 71045; 80053; 81003; 82550; 82553; 82803; 83540; 83605; 83735; 83880; 84484; 85025; 85610; 85730; 87040-91; 87086; 93005; 94640; 94644; 94664; 96374; 97116; 97164; 97530; 99285-25